=== PATIENT | female | born 1965 | race Caucasian/White ===

== ENCOUNTER → 2016-12-01 16:26 | Outpatient (CLI) | payer BC ==
[2014-08-04 11:42] VITALS: BMI 45.6
[~2016-12-01 16:26] MED LIST: CARDURA1 MG PO; CELEXA40 MG PO; EC-NAPROSYN500 MG PO; TOPAMAX50 MG PO; TOPROL XL25 MG PO; ULORIC40 MG PO; ZANAFLEX6 MG PO
== END | disposition home or self-care (01) ==
LOC: D.MAMMO 16:15
DX: Z12.31 Encounter for screening mammogram for malignant neoplasm of breast (principal)

== ENCOUNTER → 2018-08-25 08:44 | Outpatient (CLI) | payer BC ==
[2014-08-04 11:42] VITALS: BMI 45.6
== END | disposition home or self-care (01) ==
LOC: D.US 08:44
PROVIDERS: ATTEND Internal Medicine Gastroenterology
DX: R10.11 Right upper quadrant pain (principal)

== ENCOUNTER 2018-09-22 07:01 | Day surgery (SDC) | payer BC ==
[~2018-09-22] VITALS: Ht 175.3 cm; Wt 130.6 kg
[2018-09-22 07:23] LABS: HEMATOCRIT 39.4 % (36.0-48.0); HEMOGLOBIN 13.3 g/dL (12-16); MCH 30.9 pg (26.0-34.0); MCHC 33.8 g/dL (31.0-37.0); MCV 91.6 fL (80.0-100.0); MEAN PLATELET VOLUME 9.3 fL (7.4-10.4); RBC 4.3 10x6/uL (4.00-5.40); RDW 12.4 % (11.5-14.5); WBC 5.6 10x3/uL (4.8-10.8)
[2018-09-22] MEDS ORDERED: PERCOCET 10-321 EAC1 PO (08:05)
[2018-09-22] MEDS ORDERED: ZOCOR20 MG PO (08:06)
[2018-09-22] MEDS ORDERED: BUPROPION HCL100 MG (08:06)
[2018-09-22] MEDS ORDERED: FEXOFENADINE H180 MG PO (08:07)
[2018-09-22] MEDS ORDERED: OMEPRAZOLE20 M1 PO (08:07)
[2018-09-22 08:09] VITALS: BP 118/68; Ht 175.3 cm; Wt 130.6 kg
[2018-09-22] MEDS ORDERED: HYDROCODON-ACE1 EAC7 PO (09:41)
--- NOTE | 2018-09-22 11:51 | NUR ---
1025- REC'D FROM RR. DROWSY, EASILY AROUSED WITH VERBAL STIMULI. IV PATENT TO RIGHT HAND AT [facility].
--- NOTE | 2018-09-22 11:52 | NUR ---
1130- ABLE TO AMBULATE TO RESTROOM AND URINATE WITHOUT COMPLICATIONS. IV DISCONTINUED FROM RIGHT HAND WITH CATH INTACT, DISPOSED INTO SHARPS. PT TOLERATED WELL
--- NOTE | 2018-09-22 12:16 | NUR ---
1210- REVIEWED DISCHARGE INSTRUCTIONS WITH PT AND FAMILY MEMBER PRESENT. VERBALIZED UNDERSTANDING WITHOUT QUESTIONS OR CONCERNS. ESCORTED OUT VIA W/C WITH SPOUSE DRIVING HOME.
== END 2018-09-22 11:10 | disposition home or self-care (01) ==
LOC: D.OPS 07:01 → D.PAN 09:15 → D.OPS 09:15
PROVIDERS: Anesthesiology; ATTEND Surgery
DX: K80.10 Calculus of gallbladder with chronic cholecystitis without obstruction (principal); I10 Essential (primary) hypertension; Z68.41 Body mass index [BMI] 40.0-44.9, adult; Z98.84 Bariatric surgery status; Z01.812 Encounter for preprocedural laboratory examination

== ENCOUNTER → 2019-07-06 22:00 | Outpatient (CLI) | payer BC ==
[2018-09-22 08:09] VITALS: BMI 42.6
[~2019-07-06 22:00] MED LIST changes: +BUPROPION HCL100 MG; +FEXOFENADINE H180 MG PO; +HYDROCODON-ACE1 EAC7 PO; +OMEPRAZOLE20 M1 PO; +PERCOCET 10-321 EAC1 PO; +ZOCOR20 MG PO
== END | disposition home or self-care (01) ==
LOC: D.MAMMO 11:15
PROVIDERS: ATTEND Family Medicine
DX: Z12.31 Encounter for screening mammogram for malignant neoplasm of breast (principal)